=== PATIENT | female | born 2000 | race Caucasian/White ===

== ENCOUNTER 2020-09-01 09:47 | Day surgery (SDC) | payer BC ==
--- NOTE | 2020-09-01 08:42 | HP ---
DATE OF SURGERY: 09/01/2020 HISTORY OF PRESENT ILLNESS: The patient is a 19 year-old for five or six years enlarging cyst or nodule right scalp area now increasing in size. She is concerned about the risk of infection and desires excision. PAST MEDICAL HISTORY: She denied any chronic illnesses. PAST SURGICAL HISTORY: [place] teeth removed in the past. MEDICATIONS: Sprintec control. ALLERGIES: NKDA. FAMILY HISTORY: Lymphoma, diabetes. SOCIAL HISTORY: No smoking or alcohol abuse. REVIEW OF SYSTEMS: Fourteen systems reviewed negative or noncontributory as above and per preadmission questionnaire. PHYSICAL EXAMINATION: GENERAL: No acute distress. HEENT: Sclerae nonicteric. On the right side of her scalp enlarging scalp cysts or nodules. NECK: No JVD. CHEST: Equal excursion, nonlabored breathing. CVS: Regular rate and rhythm. ABDOMEN: Soft, nontender. EXTREMITIES: No significant edema. NEURO: Alert, oriented, moving extremities symmetrically. No gross motor deficits noted. PSYCH: Appropriate mood and affect. IMPRESSION: Enlarging scalp cysts or nodules. I feel the patient would benefit from excisional biopsy. Risks and benefits explained in detail including but not limited to bleeding or infection, risk of wound dehiscence requiring packing, the fact that she will have scar there, general risk of aches, pains, burning, numbness possibly long-term or chronic in nature. She understands what we excise likely will not recur but she could get similar cyst or nodule adjacent to or elsewhere on her scalp or body. She understands as well as general risk of anesthesia, deep venous thrombosis, pulmonary embolism, pneumonia, will proceed with excisional biopsy with margins of scalp cysts or nodules as an outpatient.
[~2020-09-01 09:47] MED LIST: Lactated Ringers 1,000 ML IV ONE; Lactated Ringers 1,000 ML IV SCH; Sensorcaine 0.25% 10 ML ONE
[2020-09-01 10:04] VITALS: O2SAT 100
[2020-09-01] MEDS ORDERED: Decadron 4 MG INJ ONE (11:04)
[2020-09-01] MEDS ORDERED: Xylocaine-Mpf 2% 5 Ml Vial ONE (11:04)
[2020-09-01] MEDS ORDERED: Zofran 4 MG/2 ML VIAL ONE (11:04)
[2020-09-01] MEDS ORDERED: SUBLIMAZE 100 MCG/2 ML ONE ×2 (11:04→11:56)
[2020-09-01] MEDS ORDERED: DIPRIVAN 200 MG/20 ML IV ONE (11:04)
[2020-09-01] MEDS ORDERED: BACIGUENT 30 GM ONE (11:09)
[2020-09-01 13:22] VITALS: BP 121/80; PULSE 86
--- NOTE | 2020-09-02 09:19 | OP ---
SURGERY DATE/TIME: 09/01/2020 1115 PREOPERATIVE DIAGNOSIS: Enlarging symptomatic scalp cyst or nodule. POSTOPERATIVE DIAGNOSIS: Enlarging symptomatic scalp cyst or nodule. PROCEDURE: Excisional biopsy scalp cyst approximately 1.3 cm. SURGEON: Dr. Richmond Santiago. CANARY RAISER: Leonela Murillo, Medical Student III. ANESTHESIA: General. ESTIMATED BLOOD LOSS: Minimal. INDICATIONS: As noted above. Risks and benefits explained in detail and not limited to and consent obtained. DESCRIPTION OF PROCEDURE AND FINDINGS: The patient is taken to the operating room. General anesthesia introduced. The scalp is prepped and draped in usual sterile fashion. After official time out and no disagreement with planned procedure, taking a small sliver of skin overlying the top and dissection carried deep down to and circumferentially around this dense cystic-type scalp nodule dissecting it off the underlying fashion. It was passed off for pathology. It was quite vascular requiring hemostasis with some pinpoint cautery and needlepoint cautery on a very low setting. Adequate hemostasis noted. The wound irrigated out. The wound was then closed in interrupted fashion with interrupted 3-0 Prolene, some antibiotic ointment and sterile dressing applied. The patient tolerated the procedure well. There were no immediate complications.
== END 2020-09-01 13:30 | disposition home or self-care (01) ==
LOC: SDC 09:47
PROVIDERS: ATTEND Surgery
DX: L72.11 Pilar cyst (principal); L72.12 Trichodermal cyst
CPT/HCPCS: 84703; 88304; J1100; J2405; J2704; J3010; A9270-GY